=== PATIENT | male | born 1965 ===

== ENCOUNTER → 2024-12-07 | Outpatient (CLI) | payer OTHER, MEDICAID | END | disposition home or self-care (01) | LOC: Rad HDHVI 09:08 | PROVIDERS: ATTEND Internal Medicine Cardiovascular Disease | DX: R42 Dizziness and giddiness (principal) | CPT/HCPCS: 93306 ==

== ENCOUNTER → 2024-12-09 | Outpatient (CLI) | payer OTHER, MEDICAID ==
[~2024-12-09] VITALS: Ht 172.7 cm; Wt 84.4 kg
--- NOTE | 2024-12-16 14:24 | DVHSR ---
APPROVED REPORT Exam: Nuclear Stress Test Indication: Abnormal EKG Ht: 5 ft 8 in Wt: 186 lbs BSA: 1.98 m2 HR: 63 bpm BP: 109/74 mmHg BMI: 28.27 Rhythm: NSR Medical History Medical History: Bradycardia, HTN, Hypercholesterolemia, Dizziness Medications: Lisinopril, Flomax, Morrison Allergies: No known drug allergies Stress Test Details Stress Test: Exercise stress testing was performed using a Leonidas protocol. HR Resting HR: 63 bpmMax Heart Rate (APMHR): 163.780194 bpm Max HR Achieved: 153 bpmTarget HR (85% APMHR): 138.547570 bpm % of APMHR: 93.86 Recovery HR: 77 bpm HR response to stress: Normal HR response to stress BP Resting BP: 109/74 mmHg Max BP: 200/87 mmHg Recovery BP: 117/76 mmHg BP response to stress: Exaggerated response ECG Resting ECG: Sinus Rhythm Stress ECG: Sinus Tachycardia Arrhythmia: None Recovery ECG: Sinus Rhythm Clinical Reason for Termination: Target HR achieved Stress Symptoms: None Exercise duration: 5 min sec Exercise capacity: 7.0 METs Stress ECG Conclusion ECG RESPONSE NON ISCHEMIC CARDIOLITE IMAGES NO PERFUSION ABNL LESS THAN 10% LIKELIHOOD FOR STRESS INDUCED ISCHEMIA EF 50% NM EXAM: Myocardial Perfusion REST/STRESS Imaging Protocol: Rest Tc-99m/Stress Tc-99m 1 day Resting Data Rest SPECT myocardial perfusion imaging was performed in supine position 30 minutes following the int ravenous injection of 10.35 mCi of Tc-99m Sestamibi. Time of rest injection: 0915 Time of rest imagin Administration Route: IV Administration Site: Left AC Exercise Stress At peak stress, the patient was injected intravenously with 32.5 mCi of Tc-99m Sestamibi. Time of stress injection: 1026 Time of stress imagin Administration Route: IV Administration Site: Left AC Heart Rate at time of stress injection: 151 bpm. Patient continued to exercise for 1 minute(s). Gated Stress SPECT was performed 15 minutes after stress injection. The images were gated to evaluate regional wall motion and calculate left ventricular ejection fracti on. Comments Cardiolite injection at 3 minutes, 48 seconds into test. Study Data Post stress, the left ventricular ejection was 54%.. Nuclear Conclusion ECG RESPONSE NON ISCHEMIC CARDIOLITE IMAGES NO PERFUSION ABNL LESS THAN 10% LIKELIHOOD FOR STRESS INDUCED ISCHEMIA EF 50%
== END | disposition home or self-care (01) ==
LOC: Rad HDHVI 09:04
PROVIDERS: ATTEND Internal Medicine Cardiovascular Disease
DX: R00.0 Tachycardia, unspecified (principal); R94.31 Abnormal electrocardiogram [ECG] [EKG]; I10 Essential (primary) hypertension; R00.1 Bradycardia, unspecified; E78.00 Pure hypercholesterolemia, unspecified; R42 Dizziness and giddiness
CPT/HCPCS: 78452; 93017; A9500; 96374

== ENCOUNTER → 2024-12-14 | Outpatient (CLI) | payer OTHER, MEDICAID | END | disposition home or self-care (01) | LOC: Rad HDHVI 09:54 | PROVIDERS: ATTEND Internal Medicine Cardiovascular Disease | DX: I10 Essential (primary) hypertension (principal) | CPT/HCPCS: 93880 ==